=== PATIENT | male | born 1985 | race African-American/Black ===

== ENCOUNTER 2022-07-05 09:13 | Emergency (ER) | payer OTHER | END 2022-07-05 11:55 | disposition home or self-care (01) | LOC: JD.ED 09:13 | DX: S29.012A Strain of muscle and tendon of back wall of thorax, initial encounter (principal); S39.012A Strain of muscle, fascia and tendon of lower back, initial encounter; S13.9XXA Sprain of joints and ligaments of unspecified parts of neck, initial encounter; S80.02XA Contusion of left knee, initial encounter; S90.31XA Contusion of right foot, initial encounter; Z79.899 Other long term (current) drug therapy; V49.50XA Passenger injured in collision with unspecified motor vehicles in traffic accident, initial encounter; Y92.410 Unspecified street and highway as the place of occurrence of the external cause | CPT/HCPCS: 70450; 70450-26; 72125; 72125-26; 72128; 72128-26; 72131; 72131-26; 73562-26-LT; 73562-LT; 73630-26-RT; 73630-RT; 99284 ==